=== PATIENT | female | born 1990 | race Caucasian/White ===

== ENCOUNTER 2023-06-03 16:16 | Inpatient (IN) ==
[2023-06-03 17:18] LABS: ABS Eosinophils 0.1 10^3/uL (0.0-0.5); ABS Lymphocytes 2.3 10^3/uL (1.0-4.8); ABS Neutrophils 11.1 10^3/uL (1.5-7.6); Eosinophil % 0.8 %; Hemoglobin 12.8 g/dL (11.5-14.3); Lymphocyte % 15.6 %; Mean Corpuscular Hemoglobin 30.9 pg (27-33); Mean Corpuscular Hgb Conc 34.6 g/dL (31-36); Mean Corpuscular Volume 89.2 fL (80-97); Mean Platelet Volume 7.7 fL (7.5-11.2); Platelet Count 254 10^3/uL (150-450); Red Blood Count 4.14 10^6/uL (3.63-4.92); Red Cell Distribution Width 13.2 % (12-17); White Blood Count 14.5 10^3/uL (3.8-11.8)
[2023-06-03 17:36] LABS: Albumin 3.4 g/dL (3.2-5.2); Albumin/Globulin Ratio 1.3 (1-3); Calcium 8.9 mg/dL (8.6-10.3); Creatinine, Serum 0.47 mg/dL (0.51-0.95); Globulin 2.6 g/dL (2-4); Potassium 3.8 mmol/L (3.5-5.0); Total Bilirubin 0.5 mg/dL (0.2-1.0); Uric Acid 3.9 mg/dL (2.3-6.6); eGFR CKD-EPI 130.4 (>60)
[2023-06-03 17:38] LABS: Urine Creatinine Concentration 27.86 mg/dL (20.00-320.00); Urine TP Concentration < 5 mg/dL; Urine TP Creat Ratio 0.17 mg/mg
[2023-06-03] MEDS ORDERED: Nalbuphine 10 MG/ML 1 ML VIAL IV PRN (17:52)
[2023-06-03] MEDS ORDERED: Prochlorperazine 5 mg/ml 2 ml VIAL (10 mg) IV PRN (17:52)
[2023-06-03] MEDS: Buffered Lidocaine 1% SYRIN 1 ml INTRADERM ONE (18:16)
[2023-06-03 19:27] LABS: Urine Benzodiazepine Screen None Detected (None Detect); Urine Opiates Screen None Detected (None Detect)
[2023-06-03] MEDS: Dinoprostone 10 MG VAG.SUPP VAGINAL ONE (19:46)
[2023-06-04] MEDS: miSOPROStol 100 mcg TAB PO ONE ×3 (11:02→18:31)
[2023-06-04] MEDS: Dinoprostone 10 MG VAG.SUPP VAGINAL ONE (22:30)
[2023-06-05] MEDS: Lactated Ringers 1000 ml BAG 1,000 ML IV SCH (11:18)
[2023-06-05] MEDS: Oxytocin in LR 20,000 MILLI.UNIT/1,000 ML BAG IV SCH (11:18)
[2023-06-05] MEDS: Penicillin G Potassium IV 5,000,000 UNITS in NS 0.9% 100 ml BAG 100 ML IVPB ONE (14:56)
[2023-06-05] MEDS: Penicillin G Potassium IV 3,000,000 UNITS in NS 0.9% 100 ml BAG 100 ML IVPB SCH (19:22)
[2023-06-05] MEDS: miSOPROStol 100 mcg TAB VAGINAL ONE (20:28)
[2023-06-05] MEDS: Ondansetron 4 mg VIAL 2 MG/ML 2 ml VIAL IV PRN (21:54)
[2023-06-06 08:58] LABS: ABS Basophils 0.1 10^3/uL (0.0-0.1); ABS Eosinophils 0.1 10^3/uL (0.0-0.5); ABS Lymphocytes 2.6 10^3/uL (1.0-4.8); ABS Monocytes 1.3 10^3/uL (0.0-0.9); ABS Neutrophils 15.7 10^3/uL (1.5-7.6); ABS Nucleated RBC 0.04 10^3/ul; Eosinophil % 0.3 %; Hematocrit 38.1 % (35-45); Hemoglobin 13.1 g/dL (11.5-14.3); Mean Corpuscular Hemoglobin 30.8 pg (27-33); Mean Corpuscular Hgb Conc 34.5 g/dL (31-36); Mean Corpuscular Volume 89.4 fL (80-97); Mean Platelet Volume 7.7 fL (7.5-11.2); Nucleated Red Blood Cells % 0.2 %/100WBC (0.0-0.8); Platelet Count 266 10^3/uL (150-450); Red Blood Count 4.26 10^6/uL (3.63-4.92); Red Cell Distribution Width 13.4 % (12-17); White Blood Count 19.7 10^3/uL (3.8-11.8)
[2023-06-06] MEDS: OBEPIDURAL (200 ML) 200 ML EPIDURAL SCH (09:10)
[2023-06-06] MEDS ORDERED: Sodium Citrate/Citric Acid LIQ 15 ML UDC PO PRN (09:23)
[2023-06-06] MEDS ORDERED: Phenylephrine 40 mcg/mL 10mL (400mcg) SYRINGE IV PUSH PRN ×2 (09:23)
[2023-06-06 09:50] LABS: Albumin 3.2 g/dL (3.2-5.2); Albumin/Globulin Ratio 1.3 (1-3); Calcium 8.5 mg/dL (8.6-10.3); Creatinine, Serum 0.55 mg/dL (0.51-0.95); Globulin 2.4 g/dL (2-4); Potassium 4.1 mmol/L (3.5-5.0); Total Bilirubin 0.5 mg/dL (0.2-1.0); Total Protein 5.6 g/dL (6.4-8.9); Uric Acid 3.7 mg/dL (2.3-6.6); eGFR CKD-EPI 125.6 (>60)
[2023-06-06 10:23] LABS: Urine Appearance Clear; Urine Bilirubin Negative (Negative); Urine Blood Negative (Negative); Urine Color Yellow; Urine Glucose Negative (Negative); Urine Ketones 3+ (Negative); Urine Nitrite Negative (Negative); Urine Protein Negative (Negative); Urine Specific Gravity 1.026 (1.002-1.030); Urine Urobilinogen Negative (Negative); Urine pH 5.5 (5.0-8.0)
[2023-06-06] MEDS: Morphine 2 MG/ML SYRINGE IV ONE (10:56)
[2023-06-06] MEDS: Lidocaine 1.5% EPI 1:200,000 30 ML SDV ONE (11:00)
[2023-06-06] MEDS: OBEPIDURAL (200 ML) 200 ML EPIDURAL ONE (11:00)
[2023-06-06] MEDS: Lactated Ringers 1000 ml BAG 1,000 ML IV ONE ×2 (11:01→11:02)
[2023-06-06] MEDS: Lactated Ringers 1000 ml BAG 1,000 ML IV SCH (11:34)
[2023-06-06] MEDS: Calcium Carb (TUMS) 500 mg CHEW TAB PO PRN (16:22)
[2023-06-06] MEDS: Famotidine IV 10 MG/ML 2 ml VIAL (20 mg) IV SLOW PU ONE (19:17)
[2023-06-06] MEDS: Lidocaine 1% VIAL 10 MG/ML 30 ML VIAL INJ PRN (20:45)
[2023-06-06] MEDS ORDERED: Glycerin ADULT 2.4 gm SUPP PR PRN (21:07)
[2023-06-06] MEDS ORDERED: Lactated Ringers 1000 ml BAG 1,000 ML IV SCH (22:00)
[2023-06-07] MEDS: Dibucaine 1% OINT 28.35 GM TUBE PR PRN (01:00)
[2023-06-07] MEDS: Witch Hazel PAD JAR TOPICAL PRN (01:00)
[2023-06-07 06:32] LABS: Hematocrit 26.6 % (35-45); Mean Corpuscular Hemoglobin 30.6 pg (27-33); Mean Corpuscular Hgb Conc 33.9 g/dL (31-36); Mean Corpuscular Volume 90.2 fL (80-97); Mean Platelet Volume 7.7 fL (7.5-11.2); Platelet Count 254 10^3/uL (150-450); Red Blood Count 2.95 10^6/uL (3.63-4.92); Red Cell Distribution Width 13.3 % (12-17); White Blood Count 23.2 10^3/uL (3.8-11.8)
[2023-06-07 08:18] LABS: ABS Eosinophils 0.1 10^3/uL (0.0-0.5); ABS Lymphocytes 2.9 10^3/uL (1.0-4.8); ABS Monocytes 1.9 10^3/uL (0.0-0.9); ABS Neutrophils 18.3 10^3/uL (1.5-7.6); Eosinophil % 0.2 %; Lymphocyte % 12.7 %
[2023-06-08 08:00] VITALS: BP 129/71
[2023-06-08] MEDS: RHO D Immune Globulin (HUMAN) 300 MCG = 1,500 I.U. INJ IM ONE (08:16)
== END 2023-06-08 17:50 | disposition home or self-care (01) | DRG 560 ==
LOC: MCHOBOUT 16:16 → MCHOB 17:32
PROVIDERS: ADMIT Registered Nurse; ATTEND Registered Nurse